=== PATIENT | male | born 1960 ===

== ENCOUNTER 2017-07-14 16:31 | Emergency (ER) | payer SELFPAY ==
[~2017-07-14] VITALS: Ht 177.8 cm; Wt 94.5 kg
[2017-07-14 16:34] VITALS: BP 181/91; PULSE 75; RESP 16; TEMP 98.6; O2SAT 99
== END 2017-07-14 18:54 | disposition left against medical advice (07) ==
LOC: NED 16:31
DX: R42 Dizziness and giddiness (principal); Z53.21 Procedure and treatment not carried out due to patient leaving prior to being seen by health care provider
CPT/HCPCS: 99281